=== PATIENT | female | born 1995 | race Caucasian/White ===

== ENCOUNTER 2016-10-12 12:34 | Emergency (ER) | payer MEDICAID ==
[2016-10-12] MEDS ORDERED: HYOSCYAMINE 0.5 MG/ML AMP 1 ML ONE (14:26)
[2016-10-12] MEDS ORDERED: ONDANSETRON 4 MG VIAL ONE (14:26)
== END 2016-10-12 14:59 | disposition home or self-care (01) ==
LOC: ER 12:34
CPT/HCPCS: 36415; 80053; 81003; 83690; 84703; 85025; 96374; 96375